=== PATIENT | female | born 1955 | race Caucasian/White ===

== ENCOUNTER 2020-10-12 03:07 | Emergency (ER) | payer MEDICARE, BC ==
[2020-10-12] MEDS ORDERED: Ketorolac 30 MG/ML SDV IVPUSH ONE (04:06)
[2020-10-12] MEDS ORDERED: Sodium Chloride 0.9% 10 ML Syringe FLUSH PRN (04:06)
[2020-10-12] MEDS ORDERED: Lactated Ringers 1,000 ML IV SCH (04:15)
[2020-10-12] MEDS ORDERED: Ondansetron 4 MG/2 ML SDV IVPUSH ONE (04:30)
--- NOTE | 2020-10-12 04:30 | EDM.PDOC ---
ED HPI GENERAL MEDICAL PROBLEM - General Chief Complaint: Back Pain or Injury Stated Complaint: LOWER BACK PAIN Time Seen by Provider: 10/12/20 04:05 Source of Information: Reports: Patient History Limitations: Reports: No Limitations - History of Present Illness INITIAL COMMENTS - FREE TEXT/NARRATIVE: Alexa is a 65-year-old female presenting to the ED for evaluation of low back pain. The patient reportedly received her second COVID-19 vaccine on Wednesday (3 days ago) and immediately on was already starting to not feel well with fever, chills, and generalized malaise with body aches. Patient has not had a bowel movement since Wednesday and is now having urinary symptoms including urgency, frequency, and burning. She does have a history of recurrent UTIs. 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 She currently doctors at [facility] for this. She has been trying to take ibuprofen and Tylenol for her body aches. She states that one time her UTI was so bad that she was having hematuria. She is concerned about bilateral lower flank pain and was unable to sleep tonight despite taking Aleve and Tylenol. She has only been able to void a small amount. She does report a diminished appetite and nausea which is making her quite susceptible to gagging. - Related Data Allergies Allergy/AdvReac Type Severity Reaction Status Date / Time clindamycin Allergy Rash Verified 10/12/20 03:35 Home Meds: Home Meds *Blood Pressure Pill 0 mg PO ASDIRECTED 10/12/20 [History] *Blood Pressure Pill #2 0 mg PO ASDIRECTED 10/12/20 [History] *Glipizide 0 mg PO ASDIRECTED 10/12/20 [History] *Januvia 0 mg PO ASDIRECTED 10/12/20 [History] Letrozole [Femara] 2.5 mg PO DAILY 10/12/20 [History] atorvaSTATin [Lipitor] 10 mg PO BEDTIME 10/12/20 [History] metFORMIN [Glucophage XR] 1,000 mg PO BIDMEALS 10/12/20 [History] Past Medical History HEENT History: Reports: Impaired Vision Cardiovascular History: Reports: High Cholesterol, Hypertension Respiratory History: Reports: Asthma Gastrointestinal History: Reports: Colon Polyp Genitourinary History: Reports: UTI, Recurrent GLAZIER STRUCTURAL GLASS History: Reports: Neurological History: Reports: Other (See Below) Other Neuro History: lymes disease x2 Endocrine/Metabolic History: Reports: Diabetes, Type II, Obesity/BMI 30+, Vitamin D Deficiency Immunologic History: Reports: Other (See Below) Other Immunologic History: on cancer meds Oncologic (Cancer) History: Reports: Breast Dermatologic History: Reports: Other (See Below) Other Dermatologic History: undiagnoised autoimmune disorder with skin - pt is doctoring with [facility] for this since 2017 - Infectious Disease History Infectious Disease History: Reports: Chicken Pox, Measles - Past Surgical History GI Surgical History: Reports: Cholecystectomy, Colonoscopy, Polypectomy Female Surgical History: Reports: Section, Tubal Ligation Oncologic Surgical History: Reports: Biopsy of Breast, Lumpectomy Social & Family History - Tobacco Use Tobacco Use Status *Q: Never Tobacco User ED ROS GENERAL - Review of Systems Review Of Systems: See Below Constitutional: Reports: Chills, Malaise, Decreased Appetite HEENT: Reports: Rhinitis Respiratory: Reports: No Symptoms Cardiovascular: Reports: No Symptoms GI/Abdominal: Reports: Abdominal Pain, Nausea : Reports: Dysuria, Flank Pain, Frequency, Pain, Urgency Musculoskeletal: Reports: Back Pain (Low back pain) Skin: Reports: No Symptoms Neurological: Reports: No Symptoms Psychiatric: Reports: No Symptoms Hematologic/Lymphatic: Reports: No Symptoms Immunologic: Reports: Seasonal Allergy ED EXAM,LOWER BACK PAIN/INJURY - Physical Exam Exam: See Below Exam Limited By: No Limitations General Appearance: Alert, Anxious, Moderate Distress Eye Exam: Bilateral Eye: EOMI, PERRL Throat/Mouth: Normal Lips, Normal Voice, No Airway Compromise, Other (Dry mucous membranes) Head: Atraumatic, Normocephalic Neck: Normal Inspection, Supple, Non-Tender, Full Range of Motion. No: Lymphadenopathy (R), Lymphadenopathy (L) Respiratory/Chest: No Respiratory Distress, Lungs Clear, Normal Breath Sounds Cardiovascular: Normal Peripheral Pulses, Regular Rate, Rhythm, No Murmur GI/Abdominal: Soft, Non-Tender, Abnormal Bowel Sounds (Diminished bowel sounds) Back Exam: Muscle Spasm, Paraspinal Tenderness. No: Vertebral Tenderness Extremities: Normal Inspection Neurological: Alert, Normal Mood/Affect, Normal Gait, No Motor/Sensory Deficits, Oriented x 3 Psychiatric: Normal Affect, Normal Mood Skin Exam: Warm, Dry, Intact, Normal Color, No Rash Lymphatic: No Adenopathy Course - Vital Signs Last Recorded V/S: Last Vital Signs Temp 36.2 C 10/12/20 03:55 Pulse 76 10/12/20 05:00 Resp 19 10/12/20 05:00 BP 159/77 H 10/12/20 05:00 Pulse Ox 97 10/12/20 05:00 - Orders/Labs/Meds Orders: Active Orders 24 hr Category Date Time Status Lactated Ringers [Ringers, Lactated] 1,000 ml Med 10/12/20 04:15 Ordered IV ASDIRECTED Sodium Chloride 0.9% [Saline Flush] Med 10/12/20 04:06 Ordered 10 ml FLUSH ASDIRECTED PRN Saline Lock Insert [OM.PC] Routine Oth 10/12/20 04:06 Ordered Medication Orders Lactated Ringer's (Ringers, Lactated) 1,000 mls @ 999 mls/hr IV ASDIRECTED JOVITA Last Admin: 10/12/20 04:54 Dose: 999 mls/hr Documented by: ELE Sodium Chloride (Sodium Chloride 0.9% 10 Ml Syringe) 10 ml FLUSH ASDIRECTED PRN PRN Reason: Keep Vein Open Last Admin: 10/12/20 04:54 Dose: 10 ml Documented by: ELE Labs: Laboratory Tests 10/12/20 10/12/20 10/12/20 Range/Units 04:43 04:50 04:50 WBC 10.2 (4.5-11.0) K/uL RBC 4.72 (3.30-5.50) M/uL Hgb 12.4 (12.0-15.0) g/dL Hct 39.5 (36.0-48.0) % MCV 84 (80-98) fL MCH 26 L (27-31) pg MCHC 31 L (32-36) % Plt Count 203 (150-400) K/uL Neut % (Auto) 79.3 H (36-66) % Lymph % (Auto) 10.2 L (24-44) % [place] % (Auto) 7.6 H (2-6) % Eos % (Auto) 2.3 (2-4) % Baso % (Auto) 0.6 (0-1) % Sodium 139 L (140-148) mmol/L Potassium 3.4 L (3.6-5.2) mmol/L Chloride 99 L (100-108) mmol/L Carbon Dioxide 27 (21-32) mmol/L Anion Gap 16.4 H (5.0-14.0) mmol/L BUN 16 (7-18) mg/dL Creatinine 0.9 (0.6-1.0) mg/dL Est Cr Clr Drug Dosing 53.81 mL/min Estimated GFR (MDRD) > 60 (>60) Glucose 189 H (74-106) mg/dL Calcium 10.3 H (8.5-10.1) mg/dL Total Bilirubin 0.8 (0.2-1.0) mg/dL AST 58 H (15-37) U/L ALT 90 H (12-78) U/L Alkaline Phosphatase 191 H (46-116) U/L Creatine Kinase 70 (26-192) U/L C-Reactive Protein 3.56 H (0.0-0.3) mg/dL Total Protein 6.8 (6.4-8.2) g/dL Albumin 3.6 (3.4-5.0) g/dL Globulin 3.2 (2.3-3.5) g/dL Albumin/Globulin Ratio 1.1 L (1.2-2.2) Urine Color Yellow (YELLOW) Urine Appearance Clear (CLEAR) Urine pH 6.0 (5.0-8.0) Ur Specific [place] 1.010 (1.008-1.030) Urine Protein Negative (NEGATIVE) mg/dL Urine Glucose (UA) Normal (NEGATIVE) mg/dL Urine Ketones Negative (NEGATIVE) mg/dL Urine Occult Blood Trace-lysed H (NEGATIVE) Urine Nitrite Negative (NEGATIVE) Urine Bilirubin Negative (NEGATIVE) Urine Urobilinogen 0.2 (0.2-1.0) EU/dL Ur Leukocyte Esterase Small (NEGATIVE) Urine RBC 0-5 (0-5) Urine WBC 5-10 H (0-5) Ur Epithelial Cells Rare Amorphous Sediment Not seen Urine Bacteria Few Urine Mucus Not seen Meds: Medications Generic Name Dose Route Start Last Admin Trade Name Freq PRN Reason Stop Dose Admin Lactated Ringer's 1,000 mls @ 999 mls/hr 10/12/20 04:15 10/12/20 04:54 Ringers, Lactated IV 999 mls/hr ASDIRECTED JOVITA Administration Sodium Chloride 10 ml 10/12/20 04:06 10/12/20 04:54 Sodium Chloride 0.9% 10 Ml Syringe FLUSH 10 ml ASDIRECTED PRN Administration Keep Vein Open Discontinued Medications Generic Name Dose Route Start Last Admin Trade Name Nisa PRN Reason Stop Dose Admin Ketorolac Tromethamine 30 mg 10/12/20 04:06 10/12/20 04:56 Ketorolac 30 Mg/Ml Sdv IVPUSH 10/12/20 04:07 30 mg ONETIME ONE Administration Ondansetron HCl 4 mg 10/12/20 04:30 10/12/20 04:55 Ondansetron 4 Mg/2 Ml Sdv IVPUSH 10/12/20 04:31 4 mg ONETIME ONE Administration - Re-Assessments/Exams Free Text/Narrative Re-Assessment/Exam: 10/12/20 05:22 I reviewed the patient's labs with a CBC showing leukocyte count of 10.2 with a normal differential. Her hemoglobin is 12.4 with a hematocrit of 39.5 and a platelet count of 203,000. Her comprehensive metabolic panel was significant for a sodium of 139 with a potassium of 3.4, chloride of 99 with a bicarbonate of 27, BUN of 16 with a creatinine of 0.9 and a glucose of 189. She had slight transaminitis with an AST of 58 and an ALT of 90. Her C-reactive protein is significantly elevated at 3.56. Her creatinine kinase is 70. Urinalysis shows 5-10 WBCs with 0-5 RBCs, however, she has nitrite and leukocyte Estrace negative making this unlikely to be an acute urinary tract infection. This is most likely postvaccination myalgias. Patient was treated with Toradol 30 mg IV and Zofran 4 mg IV with some improvement in her symptoms. She also received a liter of lactated Ringer's for rehydration. We will put the patient on oral Jackson 5/325 mg every 4 hours as needed for moderate to severe pain for the next 2 to 3 days for pain control. We will also put her on Zofran ODT for control of her nausea. She should continue to push fluids and may take Tylenol and or ibuprofen for the continued body aches. Indications to return to the ED were discussed and the patient is suitable for discharge in satisfactory condition. Departure - Departure Time of Disposition: 05:46 Disposition: Home, Self-Care 01 Clinical Impression: Elevated liver transaminase level Post-vaccination reaction Qualifiers: Encounter type: initial encounter Qualified Code(s): T88.1XXA - Other complications following immunization, not elsewhere classified, initial encounter - Discharge Information Instructions: Pain Medicine Instructions, [id number] Referrals: PCP,None [Primary Care Provider] - Forms: ED Department Discharge Care Plan Goals: After evaluation and work-up, it appears that your symptoms are likely related to your second dose of the COVID-19 Moderna vaccine. We will send you home with prescription for hydrocodone 5/325 mg he may take 1 tablet every 4-6 hours as needed for moderate to severe pain. I will also send you home with a prescription for Zofran ODT which is a rapid dissolve antinausea medicine you can take up to 3 times a day. You may continue to take ibuprofen and Tylenol as needed. My hope is that this will resolve within the week. Have fun on your trip to [place] and I am sorry that you lost the bet and had to go to [place]. Sepsis Event Note (ED) - Evaluation Sepsis Screening Result: No Definite Risk - Focused Exam Vital Signs: Vital Signs Temp Pulse Resp BP Pulse Ox 10/12/20 05:00 76 19 159/77 H 97 10/12/20 03:55 36.2 C 93 19 153/86 H 97 10/12/20 03:54 36.2 C 93 19 153/86 H 97 - Problem List & Annotations (1) Elevated liver transaminase level SNOMED Code(s): 960393981 Code(s): R74.01 - ELEVATION OF LEVELS OF LIVER TRANSAMINASE LEVELS Status: Acute Priority: Medium Current Visit: Yes (2) Post-vaccination reaction SNOMED Code(s): 38227306 Code(s): T88.1XXA - OTH COMPLICATIONS FOLLOWING IMMUNIZATION, NEC, INIT Status: Acute Priority: High Current Visit: Yes Qualifiers: Encounter type: initial encounter Qualified Code(s): T88.1XXA - Other complications following immunization, not elsewhere classified, initial encounter - Problem List Review Problem List Initiated/Reviewed/Updated: Yes - My Orders Last 24 Hours: My Active Orders 10/12/20 04:06 Sodium Chloride 0.9% [Saline Flush] 10 ml FLUSH ASDIRECTED PRN Saline Lock Insert [OM.PC] Routine 10/12/20 04:15 Lactated Ringers [Ringers, Lactated] 1,000 ml IV ASDIRECTED - Assessment/Plan Last 24 Hours: My Active Orders 10/12/20 04:06 Sodium Chloride 0.9% [Saline Flush] 10 ml FLUSH ASDIRECTED PRN Saline Lock Insert [OM.PC] Routine 10/12/20 04:15 Lactated Ringers [Ringers, Lactated] 1,000 ml IV ASDIRECTED
[2020-10-12] MEDS ORDERED: Acetaminophen/HYDROcodone 325-5 MG Tab PO ONE (05:52)
== END 2020-10-12 06:09 | disposition home or self-care (01) ==
LOC: JP.ED 03:07
DX: M54.5 Low back pain (principal); T50.B95A Adverse effect of other viral vaccines, initial encounter; I10 Essential (primary) hypertension; E78.00 Pure hypercholesterolemia, unspecified; E66.9 Obesity, unspecified; E11.9 Type 2 diabetes mellitus without complications; R74.01 Elevation of levels of liver transaminase levels; Z88.1 Allergy status to other antibiotic agents; Z68.41 Body mass index [BMI] 40.0-44.9, adult; Z79.84 Long term (current) use of oral hypoglycemic drugs; Z79.899 Other long term (current) drug therapy
CPT/HCPCS: 36415; 80053; 81001; 82550; 85025; 86140; 96374; 96375; 99283; A9270; J1885; J2405; J7120